=== PATIENT | male | born 1970 | race Caucasian/White ===

== ENCOUNTER → 2024-10-25 10:35 | Outpatient (REF) | payer BC, SELFPAY | LOC: PAVMRI 10:35 | PROVIDERS: ATTENDING PHYSICIAN Psychiatry & Neurology Neurology; FAMILY PHYSICIAN Nurse Practitioner | DX: G44.1 Vascular headache, not elsewhere classified (principal) | CPT/HCPCS: 70551 ==

== ENCOUNTER → 2024-11-10 13:17 | Outpatient (REF) | payer BC, SELFPAY | LOC: PAVMRI 13:17 | PROVIDERS: ATTENDING PHYSICIAN Psychiatry & Neurology Neurology; FAMILY PHYSICIAN Nurse Practitioner | DX: I77.9 Disorder of arteries and arterioles, unspecified (principal) | CPT/HCPCS: 70544 ==